=== PATIENT | male | born 1990 | race Caucasian/White ===

== ENCOUNTER 2019-12-08 06:39 | Emergency (ER) | payer OTHER, SELFPAY ==
[2019-12-08 06:48] VITALS: BP 140/92; PULSE 97; RESP 18; TEMP 36.7; O2SAT 98; BMI 38.7
--- NOTE | 2019-12-08 07:37 | DI.RAD.S_ITS ---
PROCEDURE: XR CHEST 2V INDICATIONS: sob, cough and chest pain TECHNIQUE: 2 views of the chest were acquired. COMPARISON: [facility], , CHEST 2 VIEW, 06/12/2017, 12:23. FINDINGS: Surgical changes and devices: None. Lungs and pleura: Lungs are clear. No pleural effusions or pneumothorax. Mediastinum: Mediastinal contours are normal. Heart size is normal. Bones and chest wall: No suspicious bony abnormalities. Soft tissues appear unremarkable. IMPRESSION: No acute disease Dictated by: Hunter Pierre M.D. on 12/08/2019 at 8:32 Approved by: Hunter Pierre M.D. on 12/08/2019 at 8:34
--- NOTE | 2019-12-08 07:37 | ED.URI ---
HPI - URI/Sore Throat General Chief Complaint: Upper Respiratory Symptoms Stated Complaint: difficulty breathing almost Time Seen by Provider: 12/08/19 06:41 Source: patient Mode of arrival: Ambulatory Limitations: no limitations History of Present Illness HPI Narrative: The patient is a 29-year-old male who states that he has felt like crap for the last 2-3 days prior to admission. He woke up this morning with difficulty in breathing short of breath and a cough with chest pain. He has chest pain only when coughing. He describes the pain and discomfort as a dull achy discomfort that is worse with coughing. 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 He denies any pain radiating into his neck jaw shoulder or arms. He denies any back pain. He states that he had asthma as a youth and has no hypertension diabetes mellitus or heart murmur. He smokes cigarettes and drinks alcohol. He has intermittently felt like he has had a fever over the last couple of days associated with chills but no sweats. He has had no significant headache. He has had a sore throat with sinus congestion and nasal drainage. His cough is productive of a clear sputum associated with a dull achy pain chest pain and shortness of breath. He has had no palpitations or dizziness or passing out. He denies any significant abdominal pain but has had intermittent nausea and diarrhea without vomiting. He has had no urinary symptoms. Related Data Home Medications Medication Instructions Recorded Confirmed acetaminophen [Tylenol Extra 500 mg PO Q4HP PRN #0 06/12/17 Strength] Previous Rx's Medication Instructions Recorded albuterol sulfate 2 inhalation INHALATION Q4-6H PRN 12/08/19 #1 each azithromycin [Zithromax] 250 mg PO DAILY 4 Days tab 12/08/19 benzonatate [Tessalon Perles] 100 mg PO TID PRN #20 cap 12/08/19 prednisone 40 mg PO DAILY #10 tab 12/08/19 Review of Systems Review of Systems ROS Unobtainable: All systems reviewed & are unremarkable except as noted in HPI and below Patient History Social History Smoking Status: Current every day smoker Smoking Status: Current every day smoker alcohol intake frequency: 0-2 drinks per day Substance Use Type: marijuana Exam Narrative Exam Narrative: PHYSICAL EXAM: CONSTITUTIONAL: Awake, Alert, Oriented, Coherent, Cooperative in NAD. Does not appear toxic or ill. HEAD: AT/NC EENT: PERRL, FROM of eyes, no discharge, no nystagmus No epistaxis or nasal drainage Oral mucosa is moist and pink, posterior pharynx is without erythema or exudate. NECK: Supple, no obvious JVD, Trachea is midline without stridor, no palpable LN or masses. SPINE: No gross deformity, no palpable tenderness of the cervical, thoracic, lumbar or sacral spine. No CVA tenderness. THORAX: No deformity, retractions, chest wall tenderness, subcutaneous air or crepitice. LUNGS: Symmetrical breath sounds with few expiratory squeaks. HEART: Normal heart tones, regular rhythm and rate without murmur. ABDOMEN: Soft, non-tender, normal bowel sounds without guarding, rebound, rigidity or palpable mass . LYMPHATIC: no palpable lymph nodes EXTREMITIES: No edema, cyanosis, deformity or tenderness. NEURO: Awake, alert, oriented, conversive, cranial nerves II-XII are symmetrical and normal, moves all 4 extremities and is ambulatory Initial Vital Signs Initial Vital Signs: Vital Signs Temperature 98.1 F 12/08/19 06:48 Pulse Rate 97 H 12/08/19 06:48 Respiratory Rate 18 12/08/19 06:48 Blood Pressure 140/92 H 12/08/19 06:48 Pulse Oximetry 98 12/08/19 06:48 Course Course Course Narrative: 0824: The patient's chest x-ray by my review is negative for any infiltrate. I did not appreciate any cardiopulmonary pathology. His influenza a and B are both negative. The patient appears to have an acute bronchitis. He will be treated with Zithromax, prednisone, and albuterol inhaler and Tessalon Perles. Orders Ordered: Discontinued Medications Albuterol/Ipratropium (Duoneb) 3 ml INH NOW ONE Stop: 12/08/19 07:38 Last Admin: 12/08/19 08:01 Dose: 3 ml Documented by: ANURAG Azithromycin (Zithromax) 500 mg PO NOW ONE Stop: 12/08/19 08:26 Last Admin: 12/08/19 08:33 Dose: 500 mg Documented by: VINCENZO Prednisone (Deltasone) 60 mg PO NOW ONE Stop: 12/08/19 08:26 Last Admin: 12/08/19 08:33 Dose: 60 mg Documented by: VINCENZO Vital Signs Vital signs: Vital Signs - 8 hr 12/08/19 06:48 Temperature 98.1 F Pulse Rate 97 H Respiratory Rate 18 Blood Pressure 140/92 H Pulse Oximetry 98 MDM - URI/Sore Throat Lab Data Result diagrams: 12/08/19 08:07 12/08/19 08:07 Labs: Lab Results 12/08/19 12/08/19 12/08/19 Range/Units 07:24 08:07 08:07 WBC 11.1 H (4.5-11.0) X10^3/uL RBC 4.91 (4.5-5.9) X10^6/uL Hgb 15.2 (13.5-17.5) g/dL Hct 43.7 (41-53) % MCV 89.0 (80-100) fL MCH 31.1 (26-34) PG MCHC 34.9 (30-36) % RDW 12.5 (11.6-14.8) % Plt Count 259 (150-400) X10^3/uL Neut % (Auto) 64.1 (50-75) % Lymph % (Auto) 26.2 (25-40) % Treasure % (Auto) 7.3 (3-14) % Eos % (Auto) 1.3 L (2-4) % Baso % (Auto) 1.1 (0-2) % Neut # (Auto) 7100 H (8293-8842) /uL Lymph # (Auto) 2900 (8757-3185) /uL Treasure # (Auto) 800 (0-900) /uL Eos # (Auto) 100 (0-450) /uL Baso # (Auto) 100 (0-100) /uL Sodium 142 (137-145) mmol/L Potassium 4.1 (3.4-5.1) mmol/L Chloride 107 (98-107) mmol/L Carbon Dioxide 29 (22-32) mmol/L BUN 15 (9-20) mg/dL Creatinine 0.80 (0.66-1.25) mg/dL Estimated GFR > 60.0 (>60) mL/min BUN/Creatinine Ratio 18.8 (6-22) Glucose 108 H (70-100) mg/dL Calcium 8.9 (8.4-10.2) mg/dL Influenza A (RT-PCR) Flu a negative (NEGATIVE) Influenza B (RT-PCR) Flu b negative (NEGATIVE) Discharge Plan Departure Patient Disposition: Home Clinical Impression: Bronchitis Upper respiratory infection Qualifiers: URI type: unspecified URI Qualified Code(s): J06.9 - Acute upper respiratory infection, unspecified Discharge Date/Time: 12/08/19 09:14 Instructions: DI for Acute Bronchitis, DI for Viral Upper Respiratory Infection -- Adult Activity Restrictions/Additional Instructions: You need to rest, drink plenty of fluids at least 2-3 L per day. And for any fever muscle aches headache joint pain take either Tylenol 500 mg q.4-6 hours or ibuprofen 600 mg (3, 200 mg tablets) every 6 hours. Take the prednisone as prescribed use the albuterol inhaler for shortness of breath cough and wheezing, Tessalon Perles for the cough and Zithromax until gone. Follow-up with your primary care physician in 2-3 days if not better. Prescriptions: New prednisone 20 mg tablet 40 mg PO DAILY Qty: 10 RF: 0 benzonatate [Tessalon Perles] 100 mg capsule 100 mg PO TID PRN (Reason: cough) Qty: 20 RF: 0 albuterol sulfate 90 mcg/actuation aero powdr breath act w/sensor 2 inhalation INHALATION Q4-6H PRN (Reason: shortness of breath or wheezing) Qty: 1 RF: 1 azithromycin [Zithromax] 250 mg tablet 250 mg PO DAILY 4 Days RF: 0 No Action acetaminophen [Tylenol Extra Strength] 500 MG tablet 500 mg PO Q4HP PRNQty: 0 RF: 0 Stand Alone Forms: Work Release Note
[2019-12-08] MEDS: ALBUTEROL/IPRATROPIUM 3 ML AMPUL INH (08:01)
[2019-12-08 08:02] LABS: Influenza A - CEPHEID Flu A NEGATIVE (NEGATIVE); Influenza B - CEPHEID Flu B NEGATIVE (NEGATIVE)
[2019-12-08 08:19] LABS: Add Manual Diff / Slide Review NO; Basophils Absolute Auto 100 /uL (0-100); Basophils Percent Auto 1.1 % (0-2); Eosinophils Absolute Auto 100 /uL (0-450); Eosinophils Percent Auto 1.3 % (2-4); Hematocrit 43.7 % (41-53); Hemoglobin 15.2 g/dL (13.5-17.5); Lymphocytes Absolute Auto 2900 /uL (1100-4500); Lymphocytes Percent Auto 26.2 % (25-40); Mean Corpuscular HGB Conc 34.9 % (30-36); Mean Corpuscular Hemoglobin 31.1 PG (26-34); Monocytes Absolute Auto 800 /uL (0-900); Monocytes Percent Auto 7.3 % (3-14); Neutrophils Absolute Auto 7100 /uL (1500-7000); Neutrophils Percent Auto 64.1 % (50-75); Platelet Count 259 X10^3/uL (150-400); Red Blood Cell Count 4.91 X10^6/uL (4.5-5.9); Red Cell Distribution Width 12.5 % (11.6-14.8); White Blood Cell Count 11.1 X10^3/uL (4.5-11.0)
[2019-12-08 08:29] LABS: BUN Creatinine Ratio 18.8 (6-22); Blood Urea Nitrogen 15 mg/dL (9-20); Calcium 8.9 mg/dL (8.4-10.2); Carbon Dioxide 29 mmol/L (22-32); Chloride 107 mmol/L (98-107); Estimated Glomerular Filt Rate > 60.0 mL/min (>60); Glucose 108 mg/dL (70-100); HEMOLYSIS 16 (0-50); Potassium 4.1 mmol/L (3.4-5.1); Sodium 142 mmol/L (137-145)
[2019-12-08] MEDS: predniSONE 20 MG TABLET 60 MG PO (08:33)
[2019-12-08] MEDS: AZITHROMYCIN 250 MG TABLET 500 MG PO (08:33)
[2019-12-08 08:45] VITALS: PULSE 94; RESP 16; O2SAT 98
[2019-12-08 09:13] VITALS: BP 125/82; PULSE 61; O2SAT 96
== END 2019-12-08 09:14 | disposition home or self-care (01) ==
PROVIDERS: Emergency Medicine; Emergency Provider Emergency Medicine
DX: J40 Bronchitis, not specified as acute or chronic (principal); J06.9 Acute upper respiratory infection, unspecified; R07.9 Chest pain, unspecified
CPT/HCPCS: 36415; 71046; 80048; 85025; 87502; 94640; 99283; 99284

== ENCOUNTER 2020-09-12 12:22 | Emergency (ER) | payer OTHER, SELFPAY ==
[2020-09-12 12:32] VITALS: BP 152/92; PULSE 80; RESP 22; TEMP 36.7; O2SAT 96
[2020-09-12] MEDS: ALBUTEROL HFA 200 PUFF/18 GM INH (COVID POS/VENT PTS) INH (13:24)
[2020-09-12 13:25] VITALS: PULSE 66; RESP 18; O2SAT 97
[2020-09-12 13:40] VITALS: PULSE 64; RESP 16; O2SAT 98
--- NOTE | 2020-09-12 14:04 | ED.SOB ---
HPI - SOB/Dyspnea <SAV CristobalP - Last Filed: 09/12/20 14:11> General Chief Complaint: Shortness of Breath/Dyspnea Stated Complaint: Asthma Attacks and Panic Attacks Time Seen by Provider: 09/12/20 13:38 Source: patient Mode of arrival: Ambulatory Limitations: no limitations History of Present Illness HPI Narrative: This is a 30-year-old male, smoker, who has medical history significant for pleurisy and asthma presents to ED with with chief complain of coughing and short of breath from seasonal allergies which caused anxiety and panic attacks. Patient was not able to breathe well and became anxious with hyperventilation and had tingling and numbness to his hands and became sweaty which resolved at this time. Patient did not have albuterol inhaler and states only reason I am here is to get on inhaler.. Patient reports no chest pain, dyspnea, diaphoresis, nausea or vomiting at this time. Patient denies fever, chills, productive cough, or malaise. He was evaluated by respiratory therapy and given albuterol inhaler with a spacer teaching. Patient does not have primary care physician. Related Data Home Medications Medication Instructions Recorded Confirmed No Known Home Medications 09/12/20 09/12/20 Allergies Allergy/AdvReac Type Severity Reaction Status Date / Time No Known Drug Allergies Allergy Verified 09/12/20 12:35 Review of Systems <SAV CristobalP - Last Filed: 09/12/20 14:11> Review of Systems Narrative: General: Denies fever, chills, fatigue, malaise, sweats. HEENT: Denies sinus pain, ear pain, sore throat, difficulty swallowing, dizziness. Respiratory: See HPI Cardiovascular: Denies chest pain, palpitations, orthopnea, edema. Gastrointestinal: Denies nausea, vomiting, abdominal pain, diarrhea, constipation, melena. : Denies dysuria, frequency, incontinence, hematuria, urinary retention. Musculoskeletal: Denies weakness, joint pain or bony pain. Skin: Denies rash, skin lesions, or other. Neurologic: Denies weakness, headache, numbness, change in speech, confusion, seizures, incoordination. Psychiatric: No concerning psychosocial issues. 12-point review of systems is negative except for those stated above. Patient History <ABRAN Cristobal - Last Filed: 09/12/20 14:11> Social History Smoking Status: Current every day smoker Smoking Status: Current every day smoker alcohol intake frequency: 0-2 drinks per day Substance Use Type: marijuana Exam <ABRAN Cristobal - Last Filed: 09/12/20 14:11> Narrative Exam Narrative: General appearance: well developed, well nourished, in no acute distress. Head: normocephalic, atraumatic, no scalp lesions, non-tender. ENT: Bilateral auditory canals and tympanic membranes clear. Hearing grossly intact. Nose without bleeding, purulent discharge, septal hematoma or deviation. Turbinate without erythema or swelling. Facial sinuses nontender to palpate. Mucous membrane moist, no mucosal lesion. Throat without erythema, tonsillar hypertrophy or exudate. Uvula in midline, airway patent. Neck/Thyroid: neck supple, full range of motion, no visible masses or meningeal signs. No JVD, non-tender without lymphadenopathy. Skin: no suspicious rashes, lesions over visible areas. Warm and dry and appropriate color for ethnicity. Heart: no clubbing, no cyanosis, no edema. S1 and S2 normal. RRR w/o murmurs, clicks, or bruits. Lungs: Breathing even and unlabored. No stridor. No accessory muscles used. Able to speak in full sentences. Chest: normal shape and expansion. Abdomen: non-obese, non-distended. Neurologic: alert and oriented. Cognitive exam, [employer] and PNS grossly intact on informal exam. Psych: good eye contact, normal affect. Initial Vital Signs Initial Vital Signs: Vital Signs Temperature 98.1 F 09/12/20 12:32 Pulse Rate 80 09/12/20 12:32 Respiratory Rate 22 09/12/20 12:32 Blood Pressure 152/92 H 09/12/20 12:32 Pulse Oximetry 96 09/12/20 12:32 <Leisa Emerson DO - Last Filed: 09/12/20 19:08> Initial Vital Signs Initial Vital Signs: Vital Signs Temperature 98.1 F 09/12/20 12:32 Pulse Rate 80 09/12/20 12:32 Respiratory Rate 22 09/12/20 12:32 Blood Pressure 152/92 H 09/12/20 12:32 Pulse Oximetry 96 09/12/20 12:32 Scores <[facility] - Last Filed: 09/12/20 14:11> GCS [place] coma scale eye opening: Spontaneous Samantha coma scale verbal response: Orientated [place] coma scale motor response: Obey commands [place] coma scale total score: 15 Course <[facility] SAV TongP - Last Filed: 09/12/20 14:11> Orders Ordered: Discontinued Medications Albuterol (Ventolin Hfa (Vent/Covid R/O)) 2 puff INH NOW ONE Stop: 09/12/20 13:23 Last Admin: 09/12/20 13:24 Dose: 2 puff Documented by: HARESH Vital Signs Vital signs: Vital Signs - 8 hr 09/12/20 12:32 09/12/20 13:25 09/12/20 13:40 Temperature 98.1 F Pulse Rate 80 66 64 Respiratory Rate 22 18 16 Blood Pressure 152/92 H Pulse Oximetry 96 97 98 <Leisa Emerson DO - Last Filed: 09/12/20 19:08> Orders Ordered: Discontinued Medications Albuterol (Ventolin Hfa (Vent/Covid R/O)) 2 puff INH NOW ONE Stop: 09/12/20 13:23 Last Admin: 09/12/20 13:24 Dose: 2 puff Documented by: HARESH Vital Signs Vital signs: Vital Signs - 8 hr 09/12/20 12:32 09/12/20 13:25 09/12/20 13:40 Temperature 98.1 F Pulse Rate 80 66 64 Respiratory Rate 22 18 16 Blood Pressure 152/92 H Pulse Oximetry 96 97 98 [facility] - SOB/Dyspnea <[facility] Alycia BUSINESS DATABASE ANALYST - Last Filed: 09/12/20 14:11> Differential Diagnosis Differential diagnosis: Likely community acquired pneumonia, asthma with exacerbation and other (Sees allergies, bronchitis) Medical Records Attestation: I reviewed the patient's medical records. [facility] Narrative Medical decision making narrative: This is a 30-year-old male who has history of seasonal allergies and cough, postnasal drips, nasal congestion presents to ED with short of breath that caused panic attacks. Patient describes his symptoms as panic attacks. Patient reports currently his symptoms free and feeling much improved. Lung sounds are clear to auscultate in all lobes. Patient provided with albuterol inhaler as requested and spacer teaching provided by RT and for home use. Patient provided with [facility] contact number to arrange primary care physician and return precautions were discussed including cardiac symptoms. Patient and spouse verbalized understanding in agreement with treatment plan. Smoking cessation discussion done. Discharge Plan Departure Patient Disposition: Home Clinical Impression: Seasonal allergic reaction, Cough Discharge Date/Time: 09/12/20 14:07 Instructions: DI for Shortness of Breath Activity Restrictions/Additional Instructions: You have been diagnosed with [cough, short of breath, likely from seasonal allergies which caused panic attacks]. What to do: *Take your medications as directed. Please use albuterol inhaler as needed for short of breath, cough, chest tightness. Used 2 puffs every 4 hours as needed through spacer. Also consider taking allergy pills or Flonase as needed which she can purchase [id number]. *Follow up with your primary care provider in 2-3 days, call for an appointment. Let them know you were seen in the ED and that we asked you to be seen in follow up. *Return to ED if you have any new, worsening, or concerning symptoms, such as [fever, chest pain, worsening breathing, unable to tolerate fluids, or any acute concerns]. Prescriptions: No Action No Known Home Medications RF: 0 Referrals: [facility] [Outside]
== END 2020-09-12 14:07 | disposition home or self-care (01) ==
PROVIDERS: Emergency Provider Nurse Practitioner Family
DX: J30.2 Other seasonal allergic rhinitis (principal); R05 Cough
CPT/HCPCS: 94640; 99282; 99283

== ENCOUNTER 2020-09-16 10:28 | Emergency (ER) | payer OTHER, SELFPAY ==
[2020-09-16] VITALS (8 sets, daily range): BP systolic 125–171; BP diastolic 74–100; PULSE 63–97; RESP 18; TEMP 36.4; O2SAT 95–98
[2020-09-16 11:06] LABS: Add Manual Diff / Slide Review NO; Basophils Absolute Auto 0 /uL (0-100); Basophils Percent Auto 0.3 % (0-2); Eosinophils Absolute Auto 0 /uL (0-450); Eosinophils Percent Auto 0.1 % (2-4); Hematocrit 46.2 % (41-53); Hemoglobin 16.2 g/dL (13.5-17.5); Lymphocytes Absolute Auto 2100 /uL (1100-4500); Lymphocytes Percent Auto 14.4 % (25-40); Mean Corpuscular Hemoglobin 30.9 PG (26-34); Mean Corpuscular Volume 88.3 fL (80-100); Monocytes Absolute Auto 700 /uL (0-900); Monocytes Percent Auto 4.9 % (3-14); Neutrophils Absolute Auto 11900 /uL (1500-7000); Neutrophils Percent Auto 80.3 % (50-75); Platelet Count 285 X10^3/uL (150-400); Red Blood Cell Count 5.23 X10^6/uL (4.5-5.9); Red Cell Distribution Width 12.4 % (11.6-14.8); White Blood Cell Count 14.8 X10^3/uL (4.5-11.0)
[2020-09-16 11:13] LABS: Prothrombin Time 12.1 SECONDS (10.1-12.7)
[2020-09-16 11:16] LABS: PTT Partial Thromboplastin Tim 34 SECONDS (26.4-36.2)
[2020-09-16 11:20] LABS: Alanine Aminotransferase 62 IU/L (<50); Albumin 4.7 g/dL (3.5-5.0); Albumin Globulin Ratio 1.3 (1.0-2.8); Alkaline Phosphatase 75 U/L (38-126); Aspartate Aminotransferase 41 IU/L (17-59); Bilirubin Total 0.7 mg/dL (0.2-1.3); Blood Urea Nitrogen 10 mg/dL (9-20); Calcium 9.5 mg/dL (8.4-10.2); Carbon Dioxide 23 mmol/L (22-32); Chloride 107 mmol/L (98-107); Estimated Glomerular Filt Rate > 60.0 mL/min (>60); Globulin 3.5 g/dL (1.7-4.1); Glucose 110 mg/dL (70-100); HEMOLYSIS < 15 (0-50); Lipase 45 U/L (23-300); Potassium 3.8 mmol/L (3.4-5.1); Sodium 139 mmol/L (137-145); Total Protein 8.2 g/dL (6.3-8.2)
--- NOTE | 2020-09-16 13:52 | DI.RAD.S_ITS ---
PROCEDURE: XR ACUTE ABDOMEN SERIES INDICATIONS: upper abdominal pain, nausea, no BM last 4 days TECHNIQUE: One view chest and 3 views of the abdomen were acquired. COMPARISON: None. FINDINGS: Surgical changes and devices: None. Chest: Lungs are clear. Heart size is normal. No pleural effusions. No pneumoperitoneum. Abdomen: Bowel gas pattern is normal. Small amount of stool is seen in the colon. No suspicious calcifications. Visualized solid organ contours appear normal. Bones: No suspicious bony lesions. IMPRESSION: Nonobstructive bowel gas pattern. No pneumoperitoneum. Dictated by: Jeffrey Villeda M.D. on 09/16/2020 at 14:32 Approved by: Jeffrey Villeda M.D. on 09/16/2020 at 14:33
[2020-09-16 14:34] LABS: Lactate (Lactic Acid) 1.4 mmol/L (0.7-2.1)
[2020-09-16 14:39] LABS: Procalcitonin < 0.05 ng/mL (<0.5)
[2020-09-16 14:58] LABS: Bacteria Urine None Seen; RBC Urine None Seen (0-5/HPF); WBC Urine None Seen (0-5/HPF)
[2020-09-16 15:04] LABS: Culture Indicated Urine Cult Not Indicated; Mucus Urine 1+ (Negative)
--- NOTE | 2020-09-16 20:54 | ED_ITS ---
HPI - Abdominal Pain <ABRAN Cristobal - Last Filed: 09/16/20 21:29> General Chief Complaint: Abdominal Pain Stated Complaint: Pain lower right side, hasn't really voided Time Seen by Provider: 09/16/20 13:30 Source: patient Mode of arrival: Ambulatory Limitations: no limitations History of Present Illness HPI narrative: This is a 30-year-old male, smoker, who has past medical history significant for anxiety, panic attacks, asthma, GERD presents to ED with chief complain of upper abdominal discomfort and nausea. Patient reports this is his 4th visits to ED this week with similar discomfort and denies increased in severity or changes in character. Patient was evaluated in [facility] Emergency room twice and [facility] Emergency room once with extensive tests including blood test, ultrasound test, and CT test of abdomen and pelvis. Patient was diagnosed with gastritis and discharged to home with Carafate and ranitidine. Patient has follow-up appointment with [facility] General surgeon in a week and getting an endoscope. Patient denies fever, ch ills, vomiting. Patient reports has been having difficulty with bowel movement since 4 days ago. He denies blood in his stool or emesis. Patient reports greenish mucousy stool today and had taken MiraLax before coming into ED. Patient reports decreased solid food intake but has been hydrating well with frequent urination. patient reports occasionally pain is severe with pressure- like discomfort in abdomen to low back. He reports skipping meals frequently in the past. Patient denies history of diabetes, colitis, or Crohn's. Patient used to smoke pot regularly to cope with anxiety and dealing with people but has not been using much this week. Patient called nurse's line and he is only here because he was told to going to ED next 4 hours. Related Data Home Medications Medication Instructions Recorded Confirmed No Known Home Medications 09/12/20 09/12/20 Allergies Allergy/AdvReac Type Severity Reaction Status Date / Time No Known Drug Allergies Allergy Verified 09/16/20 10:37 Review of Systems <ABRAN Cristobal - Last Filed: 09/16/20 21:29> Review of Systems Narrative: General: Denies fever, chills, fatigue, malaise, sweats. HEENT: Denies sinus pain, ear pain, sore throat, difficulty swallowing, dizziness. Respiratory: Denies dyspnea, cough, wheezing, hemoptysis, sputum. Cardiovascular: Denies chest pain, palpitations, orthopnea, edema. Gastrointestinal: See HPI : Denies dysuria, frequency, incontinence, hematuria, urinary retention. Musculoskeletal: Denies weakness, joint pain or bony pain. Skin: Denies rash, skin lesions, or other. Neurologic: Denies weakness, headache, numbness, change in speech, confusion, seizures, incoordination. Psychiatric: No concerning psychosocial issues. 12-point review of systems is negative except for those stated above. Patient History <ABRAN Cristobal - Last Filed: 09/16/20 21:29> Medical History Gastritis (Acute) Social History Smoking Status: Current every day smoker Smoking Status: Current every day smoker alcohol intake frequency: 0-2 drinks per day Substance Use Type: marijuana Exam <ABRAN Cristobal - Last Filed: 09/16/20 21:29> Narrative Exam Narrative: GEN: Alert, oriented x 3, well appearing and nourished, and in no acute distress. Head: Normal cephalic, atraumatic. No scalp or temporal tenderness, palpable mass or rash. EYES: Pupils are equal, round, and reactive to light and accommodation. Extraocular muscles are intact bilaterally. There is no subconjunctival hemorrhage, exudate and sclera non-icteric. ENT: Hearing grossly intact. Nose without bleeding, purulent discharge or deviation. Mucous membrane moist, no mucosal lesion. Throat without erythema, tonsillar hypertrophy or exudate. Uvula in midline, airway patent. Neck: Trachea in midline. No JVD, non-tender without lymphadenopathy. No masses or thyroid megaly. Supple, non-tender and no meningeal signs. CARDIAC: Normal regular rate and rhythm without murmurs, gallops, or rubs. No chest wall tenderness. No peripheral edema, cyanosis or pallor. Capillary refill is less than 2 seconds. RESPIRATORY: Lungs are clear to auscultate bilaterally. No cough, wheezes, rales, or rhonchi. No stridor, respiratory distress, increase work of breathing, or accessary muscle used. ABD: Abdomen soft and non-distended. Epigastric mild tenderness to palpate and bilateral upper abdomen minus to palpate. No guarding or rebound tenderness to palpate. Bowel sounds are normal in all 4 quadrants. There is no palpable masses or organomegaly. EXT: Full painless ROM of all extremities with no loss of sensation, strength, effusion or edema. SKIN: Warm, dry, normal color for patient. No erythema, lesions or rash over visible areas. BACK: Nontender without deformity or crepitance. No flank tenderness. NEUROLOGICAL: Alert and oriented to place, time and person. Sensation and motor function intact bilaterally. No facial droops, dysphasia. PSYCHIATRIC: Good judgement and reason, without hallucinations, abnormal affect or abnormal behaviors during the examination. Patient is not suicidal. Initial Vital Signs Initial Vital Signs: Vital Signs Temperature 97.6 F 09/16/20 10:33 Pulse Rate 88 09/16/20 10:33 Respiratory Rate 18 09/16/20 10:33 Blood Pressure 171/100 H 09/16/20 10:33 Pulse Oximetry 96 09/16/20 10:33 <Leisa Emerson DO - Last Filed: 09/21/20 07:23> Initial Vital Signs Initial Vital Signs: Vital Signs Temperature 97.6 F 09/16/20 10:33 Pulse Rate 88 09/16/20 10:33 Respiratory Rate 18 09/16/20 10:33 Blood Pressure 171/100 H 09/16/20 10:33 Pulse Oximetry 96 09/16/20 10:33 Scores <SAV CristobalP - Last Filed: 09/16/20 21:29> GCS Samantha coma scale eye opening: Spontaneous Samantha coma scale verbal response: Orientated Samantha coma scale motor response: Obey commands [place] coma scale total score: 15 qSOFA Altered Mental Status (GCS <15): No Respiratory rate greater than/equal to 22: No Systolic blood pressure less than or equal to 100: No qSOFA Total: 0 0-1 Not High Risk 1-3 High risk Course <ABRAN Cristobal - Last Filed: 09/16/20 21:29> Orders Ordered: Discontinued Medications Sodium Chloride (Normal Saline 0.9%) 1,000 mls @ 150 mls/hr IV CONT CHRIS Ondansetron HCl (Zofran) 4 mg IV NOW ONE Stop: 09/16/20 13:46 Vital Signs Vital signs: Vital Signs - 8 hr 09/16/20 14:16 09/16/20 14:17 09/16/20 14:30 Pulse Rate 74 69 63 Respiratory Rate Blood Pressure 131/74 125/75 Pulse Oximetry 98 97 95 09/16/20 14:39 09/16/20 15:00 09/16/20 15:01 Pulse Rate 78 97 H 66 Respiratory Rate Blood Pressure 134/79 Pulse Oximetry 96 98 98 09/16/20 15:20 Pulse Rate 72 Respiratory Rate 18 Blood Pressure 140/91 H Pulse Oximetry 97 <Leisa Emerson DO - Last Filed: 09/21/20 07:23> Orders Ordered: Discontinued Medications Sodium Chloride (Normal Saline 0.9%) 1,000 mls @ 150 mls/hr IV CONT CHRIS Ondansetron HCl (Zofran) 4 mg IV NOW ONE Stop: 09/16/20 13:46 Vital Signs Vital signs: Vital Signs - 8 hr 09/16/20 14:16 09/16/20 14:17 09/16/20 14:30 Pulse Rate 74 69 63 Respiratory Rate Blood Pressure 131/74 125/75 Pulse Oximetry 98 97 95 09/16/20 14:39 09/16/20 15:00 09/16/20 15:01 Pulse Rate 78 97 H 66 Respiratory Rate Blood Pressure 134/79 Pulse Oximetry 96 98 98 09/16/20 15:20 Pulse Rate 72 Respiratory Rate 18 Blood Pressure 140/91 H Pulse Oximetry 97 MDM - Abdominal Pain <ABRAN Cristobal - Last Filed: 09/16/20 21:29> Differential Diagnosis Differential diagnosis: Likely abdominal pain, acute appendicitis, calculus of kidney, constipation, pancreatitis and other (Gastritis, ulcer, colitis) Medical Records Attestation: I reviewed the patient's medical records. Lab Data Attestation: I reviewed the patient's lab results. Result diagrams: 09/16/20 10:35 09/16/20 10:35 Labs: Lab Results 09/16/20 09/16/20 09/16/20 Range/Units 10:35 10:35 10:35 WBC 14.8 H (4.5-11.0) X10^3/uL RBC 5.23 (4.5-5.9) X10^6/uL Hgb 16.2 (13.5-17.5) g/dL Hct 46.2 (41-53) % MCV 88.3 (80-100) fL MCH 30.9 (26-34) PG MCHC 35.0 (30-36) % RDW 12.4 (11.6-14.8) % Plt Count 285 (150-400) X10^3/uL Neut % (Auto) 80.3 H (50-75) % Lymph % (Auto) 14.4 L (25-40) % Baldwin % (Auto) 4.9 (3-14) % Eos % (Auto) 0.1 L (2-4) % Baso % (Auto) 0.3 (0-2) % Neut # (Auto) 88409 H (1916-7752) /uL Lymph # (Auto) 2100 (2078-5664) /uL Baldwin # (Auto) 700 (0-900) /uL Eos # (Auto) 0 (0-450) /uL Baso # (Auto) 0 (0-100) /uL PT 12.1 (10.1-12.7) SECONDS INR 1.0 (0.9-1.3) APTT 34 (26.4-36.2) SECONDS Sodium 139 (137-145) mmol/L Potassium 3.8 (3.4-5.1) mmol/L Chloride 107 (98-107) mmol/L Carbon Dioxide 23 (22-32) mmol/L BUN 10 (9-20) mg/dL Creatinine 0.83 (0.66-1.25) mg/dL Estimated GFR > 60.0 (>60) mL/min BUN/Creatinine Ratio 12.0 (6-22) Glucose 110 H (70-100) mg/dL Lactate (0.7-2.1) mmol/L Calcium 9.5 (8.4-10.2) mg/dL Total Bilirubin 0.7 (0.2-1.3) mg/dL AST 41 (17-59) IU/L ALT 62 H (<50) IU/L Alkaline Phosphatase 75 (38-126) U/L Total Protein 8.2 (6.3-8.2) g/dL Albumin 4.7 (3.5-5.0) g/dL Globulin 3.5 (1.7-4.1) g/dL Albumin/Globulin Ratio 1.3 (1.0-2.8) Lipase 45 (23-300) U/L Procalcitonin (<0.5) ng/mL Urine RBC (0-5/HPF) Urine WBC (0-5/HPF) Urine Bacteria (None) Urine Mucus (Negative) Ur Culture Indicated? 09/16/20 09/16/20 09/16/20 Range/Units 10:35 10:35 14:35 WBC (4.5-11.0) X10^3/uL RBC (4.5-5.9) X10^6/uL Hgb (13.5-17.5) g/dL Hct (41-53) % MCV (80-100) fL MCH (26-34) PG MCHC (30-36) % RDW (11.6-14.8) % Plt Count (150-400) X10^3/uL Neut % (Auto) (50-75) % Lymph % (Auto) (25-40) % Baldwin % (Auto) (3-14) % Eos % (Auto) (2-4) % Baso % (Auto) (0-2) % Neut # (Auto) (2309-9154) /uL Lymph # (Auto) (1248-5086) /uL Baldwin # (Auto) (0-900) /uL Eos # (Auto) (0-450) /uL Baso # (Auto) (0-100) /uL PT (10.1-12.7) SECONDS INR (0.9-1.3) APTT (26.4-36.2) SECONDS Sodium (137-145) mmol/L Potassium (3.4-5.1) mmol/L Chloride (98-107) mmol/L Carbon Dioxide (22-32) mmol/L BUN (9-20) mg/dL Creatinine (0.66-1.25) mg/dL Estimated GFR (>60) mL/min BUN/Creatinine Ratio (6-22) Glucose (70-100) mg/dL Lactate 1.4 (0.7-2.1) mmol/L Calcium (8.4-10.2) mg/dL Total Bilirubin (0.2-1.3) mg/dL AST (17-59) IU/L ALT (<50) IU/L Alkaline Phosphatase (38-126) U/L Total Protein (6.3-8.2) g/dL Albumin (3.5-5.0) g/dL Globulin (1.7-4.1) g/dL Albumin/Globulin Ratio (1.0-2.8) Lipase (23-300) U/L Procalcitonin < 0.05 (<0.5) ng/mL Urine RBC None seen (0-5/HPF) Urine WBC None seen (0-5/HPF) Urine Bacteria None seen (None) Urine Mucus 1+ H (Negative) Ur Culture Indicated? Cult not indicated Point of care testing: Urine Dip Bedside Urine Glucose Negative Bedside Urine Bilirubin - Negative Bedside Urine Ketone +++ 80 Urine Specific [place] 1.025 Bedside Urine Occult Blood +/- Bedside Urine pH 6 Bedside Urine Urobilinogen - Negative Bedside Urine Nitrite - Negative Bedside Urine Leukocytes - Negative Esterase MDM Narrative Medical decision making narrative: This is a 30-year-old male who presents to ED with upper abdominal/epigastric region discomfort and nausea. This is his 4th visit to ED emergency room including twice at [facility] and once at [facility]. Patient received comprehensive exam and evaluation with labs and imaging tests including ultrasound and CT without acute findings. He was diagnosed with gastritis and he is currently taking Carafate, Protonix and Pepcid for his symptoms. Patient has slightly elevated leukocytosis of 14.8. Stable H&H of 16.2/46.2. Normal coag test. Mildly elevated ALT of 62 otherwise unremarkable chemistry test. Lactate (1.4) and procalcitonin (<0.05) normal. Patient declined IV insertion or IV medication of Zofran for nausea. No indications of dehydration. No indications for UTI but shows some ketones and +/-occult blood in his urine. Acute abdominal series does not shows obstructions or pneumo peritoneum. Small amount of stool seen in colon and solid organ appears to be normal in contours. Previous lab test shows WBC from 09/13-09/15 range from 13.7 to as high as 16.0 (09/13) with unremarkable chemistry test except just very mildly elevated ALT and glucose. US on 09/14/2020 shows diffusely increased hepatic echogenicity compatible with hepatic steatosis versus chronic hepatocellular disease with the focal lesions and otherwise normal pancreas and gallbladder. CT on 09/15/2020 indicates no acute disease process, no free fluid or air, no dilated bowel loops and normal appendix. Given patient had extensive tests done last few days with same chief complain, I discussed detail with patient about exposing to CT rays and its benefit and harm. Patient declined further imaging test at this time. Patient advised to continue with current medication treatment with Carafate, Pepcid and or Protonix for next couple of weeks and to follow-up with appointment in about a week with surgery at [facility]. Strict return precautions were discussed with patient and he verbalized understanding in agreement with the treatment plan. Patient advised to use Zofran as needed that he has already to hydrate himself. Patient informed can continue with MiraLax onto has good bowel movements but decreased stool likely from decreased p.o. intake. <Leisa Emerson, DO - Last Filed: 09/21/20 07:23> Lab Data Labs: Lab Results 09/16/20 09/16/20 09/16/20 Range/Units 10:35 10:35 10:35 WBC 14.8 H (4.5-11.0) X10^3/uL RBC 5.23 (4.5-5.9) X10^6/uL Hgb 16.2 (13.5-17.5) g/dL Hct 46.2 (41-53) % MCV 88.3 (80-100) fL MCH 30.9 (26-34) PG MCHC 35.0 (30-36) % RDW 12.4 (11.6-14.8) % Plt Count 285 (150-400) X10^3/uL Neut % (Auto) 80.3 H (50-75) % Lymph % (Auto) 14.4 L (25-40) % Baldwin % (Auto) 4.9 (3-14) % Eos % (Auto) 0.1 L (2-4) % Baso % (Auto) 0.3 (0-2) % Neut # (Auto) 06677 H (6350-1738) /uL Lymph # (Auto) 2100 (2172-0968) /uL Baldwin # (Auto) 700 (0-900) /uL Eos # (Auto) 0 (0-450) /uL Baso # (Auto) 0 (0-100) /uL PT 12.1 (10.1-12.7) SECONDS INR 1.0 (0.9-1.3) APTT 34 (26.4-36.2) SECONDS Sodium 139 (137-145) mmol/L Potassium 3.8 (3.4-5.1) mmol/L Chloride 107 (98-107) mmol/L Carbon Dioxide 23 (22-32) mmol/L BUN 10 (9-20) mg/dL Creatinine 0.83 (0.66-1.25) mg/dL Estimated GFR > 60.0 (>60) mL/min BUN/Creatinine Ratio 12.0 (6-22) Glucose 110 H (70-100) mg/dL Lactate (0.7-2.1) mmol/L Calcium 9.5 (8.4-10.2) mg/dL Total Bilirubin 0.7 (0.2-1.3) mg/dL AST 41 (17-59) IU/L ALT 62 H (<50) IU/L Alkaline Phosphatase 75 (38-126) U/L Total Protein 8.2 (6.3-8.2) g/dL Albumin 4.7 (3.5-5.0) g/dL Globulin 3.5 (1.7-4.1) g/dL Albumin/Globulin Ratio 1.3 (1.0-2.8) Lipase 45 (23-300) U/L Procalcitonin (<0.5) ng/mL Urine RBC (0-5/HPF) Urine WBC (0-5/HPF) Urine Bacteria (None) Urine Mucus (Negative) Ur Culture Indicated? 09/16/20 09/16/20 09/16/20 Range/Units 10:35 10:35 14:35 WBC (4.5-11.0) X10^3/uL RBC (4.5-5.9) X10^6/uL Hgb (13.5-17.5) g/dL Hct (41-53) % MCV (80-100) fL MCH (26-34) PG MCHC (30-36) % RDW (11.6-14.8) % Plt Count (150-400) X10^3/uL Neut % (Auto) (50-75) % Lymph % (Auto) (25-40) % Baldwin % (Auto) (3-14) % Eos % (Auto) (2-4) % Baso % (Auto) (0-2) % Neut # (Auto) (4130-6535) /uL Lymph # (Auto) (9835-6228) /uL Baldwin # (Auto) (0-900) /uL Eos # (Auto) (0-450) /uL Baso # (Auto) (0-100) /uL PT (10.1-12.7) SECONDS INR (0.9-1.3) APTT (26.4-36.2) SECONDS Sodium (137-145) mmol/L Potassium (3.4-5.1) mmol/L Chloride (98-107) mmol/L Carbon Dioxide (22-32) mmol/L BUN (9-20) mg/dL Creatinine (0.66-1.25) mg/dL Estimated GFR (>60) mL/min BUN/Creatinine Ratio (6-22) Glucose (70-100) mg/dL Lactate 1.4 (0.7-2.1) mmol/L Calcium (8.4-10.2) mg/dL Total Bilirubin (0.2-1.3) mg/dL AST (17-59) IU/L ALT (<50) IU/L Alkaline Phosphatase (38-126) U/L Total Protein (6.3-8.2) g/dL Albumin (3.5-5.0) g/dL Globulin (1.7-4.1) g/dL Albumin/Globulin Ratio (1.0-2.8) Lipase (23-300) U/L Procalcitonin < 0.05 (<0.5) ng/mL Urine RBC None seen (0-5/HPF) Urine WBC None seen (0-5/HPF) Urine Bacteria None seen (None) Urine Mucus 1+ H (Negative) Ur Culture Indicated? Cult not indicated Point of care testing: Urine Dip Bedside Urine Glucose Negative Bedside Urine Bilirubin - Negative Bedside Urine Ketone +++ 80 Urine Specific [place] 1.025 Bedside Urine Occult Blood +/- Bedside Urine pH 6 Bedside Urine Urobilinogen - Negative Bedside Urine Nitrite - Negative Bedside Urine Leukocytes - Negative Esterase Discharge Plan Departure Patient Disposition: Home Clinical Impression: Abdominal pain, epigastric Discharge Date/Time: 09/16/20 15:21 Activity Restrictions/Additional Instructions: You have been diagnosed with [epigastric pain. Recently diagnosed with gastritis and waiting for an appointment with a surgeon for a scope. Labs are unremarkable and not much changes from previous tests results. X-ray test does not show obstructions or perforation.]. What to do: *Take your medications as directed. Please continue with current medications for stomach pain. Please continue with Zofran as needed for nausea the you can hydrate. You can continue with MiraLax until you have a good bowel movement. *Follow up with your primary care provider in 2-3 days, call for an appointment. Let them know you were seen in the ED and that we asked you to be seen in follow up. *Return to ED if you have any new, worsening, or concerning symptoms, such as [fever, worsening pain, pain more localized in right lower quadrant, blood in her stool or emesis, chest pain, breathing difficulty, unable to tolerate fluids or any acute concerns]. Prescriptions: No Action No Known Home Medications RF: 0 <Leisa Emerson DO - Last Filed: 09/21/20 07:23> Cosign ED Attending Cosignature Attestation: I was immediately available in the department for consultation. This documentation has been reviewed, patient case discussed with myself and I agree with assessment and plan. Supervised by Leisa Emerson DO
== END 2020-09-16 15:21 | disposition home or self-care (01) ==
PROVIDERS: Emergency Medicine; Emergency Provider Nurse Practitioner Family
DX: R10.13 Epigastric pain (principal); D72.829 Elevated white blood cell count, unspecified; R11.0 Nausea
CPT/HCPCS: 36415; 74022; 80053; 81003; 81015; 83605; 83690; 84145; 85025; 85610; 85730; 99284

== ENCOUNTER 2020-10-11 17:50 | Emergency (ER) | payer OTHER, MEDICAID, SELFPAY ==
[2020-10-11 18:07] VITALS: BP 139/89; PULSE 70; RESP 15; TEMP 36.8; O2SAT 96; BMI 37.6
--- NOTE | 2020-10-11 18:15 | DI.RAD.S_ITS ---
PROCEDURE: XR CHEST 1V INDICATIONS: chest pain TECHNIQUE: One view of the chest was acquired. COMPARISON: [facility], CR, XR CHEST 2V, 12/08/2019, 7:39. FINDINGS: Surgical changes and devices: None. Lungs and pleura: Lungs are clear. No pleural effusions or pneumothorax. Mediastinum: Mediastinal contours appear normal. Heart size is normal. Bones and chest wall: No suspicious bony lesions. Overlying soft tissues appear unremarkable. IMPRESSION: No acute cardiopulmonary pathology. Dictated by: Lincoln Pichardo M.D. on 10/11/2020 at 18:59 Approved by: Lincoln Pichardo M.D. on 10/11/2020 at 18:59
[2020-10-11 18:38] LABS: Add Manual Diff / Slide Review NO; Basophils Absolute Auto 100 /uL (0-100); Basophils Percent Auto 0.5 % (0-2); Eosinophils Absolute Auto 0 /uL (0-450); Eosinophils Percent Auto 0.1 % (2-4); Hemoglobin 15.7 g/dL (13.5-17.5); Lymphocytes Absolute Auto 1900 /uL (1100-4500); Lymphocytes Percent Auto 14.2 % (25-40); Mean Corpuscular HGB Conc 34.8 % (30-36); Monocytes Absolute Auto 700 /uL (0-900); Monocytes Percent Auto 5.5 % (3-14); Neutrophils Absolute Auto 10600 /uL (1500-7000); Neutrophils Percent Auto 79.7 % (50-75); Platelet Count 268 X10^3/uL (150-400); Red Blood Cell Count 5.06 X10^6/uL (4.5-5.9); Red Cell Distribution Width 12.5 % (11.6-14.8); White Blood Cell Count 13.3 X10^3/uL (4.5-11.0)
[2020-10-11 18:40] LABS: Prothrombin Time 11.9 SECONDS (10.1-12.7)
[2020-10-11 18:43] LABS: PTT Partial Thromboplastin Tim 31 SECONDS (26.4-36.2)
[2020-10-11 18:45] LABS: Alanine Aminotransferase 34 IU/L (<50); Albumin 4.6 g/dL (3.5-5.0); Albumin Globulin Ratio 1.4 (1.0-2.8); Alkaline Phosphatase 54 U/L (38-126); Aspartate Aminotransferase 27 IU/L (17-59); BUN Creatinine Ratio 21.1 (6-22); Bilirubin Total 0.8 mg/dL (0.2-1.3); Blood Urea Nitrogen 15 mg/dL (9-20); Calcium 9.4 mg/dL (8.4-10.2); Carbon Dioxide 25 mmol/L (22-32); Chloride 107 mmol/L (98-107); Creatine Kinase 73 U/L (55-170); Estimated Glomerular Filt Rate > 60.0 mL/min (>60); Globulin 3.3 g/dL (1.7-4.1); Glucose 127 mg/dL (70-100); HEMOLYSIS 62 (0-50); Lipase 109 U/L (23-300); Potassium 3.8 mmol/L (3.4-5.1); Sodium 140 mmol/L (137-145); Total Protein 7.9 g/dL (6.3-8.2)
[2020-10-11 18:57] LABS: Troponin I < 0.012 ng/mL (0.01-0.034)
[2020-10-11 20:07] VITALS: PULSE 54; RESP 16; O2SAT 97
[2020-10-11 20:08] VITALS: BP 137/73; TEMP 36.7
--- NOTE | 2020-10-11 20:15 | PC.NURSE ---
Pt reports one week of feeling unwell. Reports intermittent headache and left upper chest pain. States I can't really rate it, its just uncomfortable. Hands and feet with intermittent numbness and feeling cold. Recent diagnosis with ear infection.
[2020-10-11 20:30] VITALS: BP 116/76; PULSE 54; RESP 18; O2SAT 96
--- NOTE | 2020-10-11 20:30 | ED.EXTPRO ---
HPI - Extremity Problem General Chief complaint: Extremity Problem,Nontraumatic Stated complaint: DIZZY HAND AND FEET NUMBNESS Time Seen by Provider: 10/11/20 20:08 Source: patient Mode of arrival: Ambulatory Limitations: no limitations History of Present Illness HPI Narrative: Patient is a 30-year-old male here for evaluation of multiple symptoms. He states that he has had chest pain on on for past couple weeks. Was seen in outside facility just a couple days ago diagnosed with an ear infection and was placed on steroids and amoxicillin secondary to this. He states he went to the hospital because he woke up having shortness of breath. He was also tested for COVID-19 and was reported to be negative. Reports other symptoms to include episodes where he becomes very lightheaded. He states that his hands and feet become tingling. These episodes seem to come and go into not last long when they are present. Has had some nausea but no vomiting. Related Data Home Medications Medication Instructions Recorded Confirmed No Known Home Medications 09/12/20 09/12/20 Allergies Allergy/AdvReac Type Severity Reaction Status Date / Time No Known Drug Allergies Allergy Verified 10/11/20 18:09 Review of Systems Constitutional Constitutional: Denies fever(s) and Denies headache(s) Eyes Eyes: Denies change in vision ENT Ears, Nose, Mouth, and Throat: Denies vertigo, Reports dizziness, Denies headache(s) and Denies sore throat Cardiovascular Cardiovascular: Reports chest pain and Reports dyspnea Respiratory Respiratory: Denies cough and Reports dyspnea Gastrointestinal Gastrointestinal: Reports nausea and Denies vomiting Genitourinary Genitourinary: Denies dysuria Genitourinary: Denies dysuria Musculoskeletal Musculoskeletal: Denies arthralgias, Denies myalgias and Reports tingling Integumentary/Breasts Skin/Breast: Denies rash Neurologic Neurologic: Denies confusion, Denies vertigo, Reports dizziness, Denies headache(s) and Reports tingling Psychiatric Psychiatric: Reports anxiety and Denies confusion Hematologic/Lymphatic Hematologic/Lymphatic: Denies easy bleeding and Denies easy bruising Allergic/Immunologic Allergic/Immunologic: Denies urticaria Patient History Medical History Gastritis Social History Smoking Status: Current every day smoker Smoking Status: Current every day smoker alcohol intake frequency: holidays/special occasions only Substance Use Type: does not use Exam Initial Vital Signs Initial Vital Signs: Vital Signs Temperature 98.2 F 10/11/20 18:07 Pulse Rate 70 10/11/20 18:07 Respiratory Rate 15 10/11/20 18:07 Blood Pressure 139/89 10/11/20 18:07 Pulse Oximetry 96 10/11/20 18:07 Const General: cooperative, comfortable and well developed Limitations: mental status not altered HENGA Head: normal to inspection and normocephalic Resp Effort & Inspection: normal respiratory effort Auscultation: clear to auscultation bilaterally Cardio Rate: regular rate Rhythm: regular rhythm GI Inspection: non-distended Palpation: soft Skin Lesions: no lesions Rashes: no rashes Neuro General: patient alert and patient awake Cognition: normal cognition Speech: speech normal Extrem General: capillary refill normal Psych Appearance: grossly normal and well kempt Course Orders Ordered: ED Orders 10/11/20 18:15 XR chest 1V Stat 10/11/20 18:20 Complete Blood Count AUTO DIFF Stat Comprehensive Metabolic Panel Stat Lipase Stat Partial Thromboplastin Time Stat Prothrombin Time INR Stat Troponin & CK Cardiac Panel Stat 10/11/20 18:24 EKG-12 Lead Stat Vital Signs Vital signs: Vital Signs - 8 hr 10/11/20 18:07 10/11/20 20:07 10/11/20 20:08 Temperature 98.2 F 98.0 F Pulse Rate 70 54 L Respiratory Rate 15 16 Blood Pressure 139/89 137/73 Pulse Oximetry 96 97 10/11/20 20:30 Temperature Pulse Rate 54 L Respiratory Rate 18 Blood Pressure 116/76 Pulse Oximetry 96 MDM - Extremity (Nontraumatic) Lab Data Result diagrams: 10/11/20 18:20 10/11/20 18:20 Labs: Lab Results 10/11/20 10/11/20 10/11/20 Range/Units 18:20 18:20 18:20 WBC 13.3 H (4.5-11.0) X10^3/uL RBC 5.06 (4.5-5.9) X10^6/uL Hgb 15.7 (13.5-17.5) g/dL Hct 45.0 (41-53) % MCV 89.0 (80-100) fL MCH 31.0 (26-34) PG MCHC 34.8 (30-36) % RDW 12.5 (11.6-14.8) % Plt Count 268 (150-400) X10^3/uL Neut % (Auto) 79.7 H (50-75) % Lymph % (Auto) 14.2 L (25-40) % Amite % (Auto) 5.5 (3-14) % Eos % (Auto) 0.1 L (2-4) % Baso % (Auto) 0.5 (0-2) % Neut # (Auto) 36504 H (6548-5443) /uL Lymph # (Auto) 1900 (8834-9025) /uL Amite # (Auto) 700 (0-900) /uL Eos # (Auto) 0 (0-450) /uL Baso # (Auto) 100 (0-100) /uL PT 11.9 (10.1-12.7) SECONDS INR 1.0 (0.9-1.3) APTT 31 D (26.4-36.2) SECONDS Sodium 140 (137-145) mmol/L Potassium 3.8 (3.4-5.1) mmol/L Chloride 107 (98-107) mmol/L Carbon Dioxide 25 (22-32) mmol/L BUN 15 (9-20) mg/dL Creatinine 0.71 (0.66-1.25) mg/dL Estimated GFR > 60.0 (>60) mL/min BUN/Creatinine Ratio 21.1 (6-22) Glucose 127 H (70-100) mg/dL Calcium 9.4 (8.4-10.2) mg/dL Total Bilirubin 0.8 (0.2-1.3) mg/dL AST 27 (17-59) IU/L ALT 34 (<50) IU/L Alkaline Phosphatase 54 (38-126) U/L Total Creatine Kinase 73 (55-170) U/L CK-MB (CK-2) TNP CK-MB (CK-2) Rel Index TNP Troponin I < 0.012 (0.01-0.034) ng/mL Total Protein 7.9 (6.3-8.2) g/dL Albumin 4.6 (3.5-5.0) g/dL Globulin 3.3 (1.7-4.1) g/dL Albumin/Globulin Ratio 1.4 (1.0-2.8) Lipase 109 (23-300) U/L Imaging Data Chest x-ray: Radiologist's Impression: [address] [id number] ReportSigned Patient: Juan Singh VMR#: [id number]: 1990Acct:[id number]/Sex: 30 / MDate of Service: 10/11/20Loc: EDAccession Number: [id number] Procedure: XR chest 1V Ordering Provider: Chace Beasley D.O. PROCEDURE: XR CHEST 1V INDICATIONS: chest pain TECHNIQUE: One view of the chest was acquired. COMPARISON: [facility], , XR CHEST 2V, 12/08/2019, 7:39. FINDINGS: Surgical changes and devices: None. Lungs and pleura: Lungs are clear. No pleural effusions or pneumothorax. Mediastinum: Mediastinal contours appear normal. Heart size is normal. Bones and chest wall: No suspicious bony lesions. Overlying soft tissues appear unremarkable. IMPRESSION: No acute cardiopulmonary pathology. Dictated by: Lincoln Pichardo M.D. on 10/11/2020 at 18:59 Approved by: Lincoln Pichardo M.D. on 10/11/2020 at 18:59 ECG Data Attestation EKG: I personally reviewed and interpreted this ECG as follows: Prior ECG tracings: not available for review Interpretation: Sinus bradycardia Ventricular rate of 57 Normal axis Normal QRS Normal QTC No ST T wave changes MDM Narrative Medical decision making narrative: Low suspicion for ACS. Is currently on antibiotics and would treat any respiratory illness. Low suspicion for pneumonia. Was tested for coronavirus is negative. Based on his history and physical exam I do have a high suspicion that he is having panic attacks/anxiety issues. He states that he has had anxiety in the past and agrees this could be was going on. He has made contact with a new primary doctor but his 1st appointment is later this month. He did not want any anti anxiety medicine here in the ER. He does occasionally smoke marijuana but has not in at least the past week. Advised him that he should abstain from smoking this has it could potentially be causing some of his problems. Feel we can hold on further workup for now discharge patient home was given return precautions. Both he and his was at bedside expressed understanding and agreement with plan. Discharge Plan Departure Patient Disposition: Home Clinical Impression: Anxiety Instructions: DI for Anxiety -- Adult Activity Restrictions/Additional Instructions: Recommend that you keep your scheduled appointment with your new primary doctor later this month. Return to the emergency department for any new or worsening symptoms Prescriptions: No Action No Known Home Medications RF: 0
== END 2020-10-11 20:44 | disposition home or self-care (01) ==
PROVIDERS: Emergency Provider Emergency Medicine
DX: F41.9 Anxiety disorder, unspecified (principal); R00.1 Bradycardia, unspecified; R42 Dizziness and giddiness; R06.02 Shortness of breath; R07.9 Chest pain, unspecified
CPT/HCPCS: 36415; 71045; 80053; 82550; 83690; 84484; 85025; 85610; 85730; 93005; 99283; 99284

== ENCOUNTER 2022-02-21 19:26 | Emergency (ER) | payer OTHER, MEDICAID, SELFPAY ==
[2022-02-21 19:35] VITALS: BP 162/98; PULSE 98; RESP 22; TEMP 37.1; O2SAT 100
--- NOTE | 2022-02-21 19:56 | ED_ITS ---
HPI - General Adult General Chief complaint: Dental/Oral Stated complaint: lump under chin lt ear, pain Time Seen by Provider: 02/21/22 19:48 Source: patient Mode of arrival: Ambulatory History of Present Illness HPI narrative: 32-year-old male who a couple days ago had pain in his left lower back tooth. That is since improved since then he has noticed discomfort along his jaw on the left side. No sore throat. No ear pain. Attempted to contact the dentist and was told it would be several weeks before he can get in to be seen. Has not tried anything for symptoms prior to arrival. Related Data Previous Rx's Medication Instructions Recorded penicillin V potassium 500 mg 500 mg PO QID 7 Days #28 tab 02/21/22 tablet Allergies Allergy/AdvReac Type Severity Reaction Status Date / Time No Known Drug Allergies Allergy Verified 10/11/20 18:09 Review of Systems Constitutional Constitutional: Denies fever(s) ENT Ears, Nose, Mouth, and Throat: Reports system reviewed and no additional complaints, except as documented Respiratory Respiratory: Reports system reviewed and no additional complaints, except as documented Gastrointestinal Gastrointestinal: Reports system reviewed and no additional complaints, except as documented Integumentary/Breasts Skin/Breast: Reports system reviewed and no additional complaints, except as documented Patient History Medical History Gastritis Social History Smoking Status: Current every day smoker Smoking Status: Current every day smoker alcohol intake frequency: holidays/special occasions only Substance Use Type: does not use Exam Initial Vital Signs Initial Vital Signs: Vital Signs Temperature 98.8 F 02/21/22 19:35 Pulse Rate 98 H 02/21/22 19:35 Respiratory Rate 22 02/21/22 19:35 Blood Pressure 162/98 H 02/21/22 19:35 Pulse Oximetry 100 02/21/22 19:35 Const General: cooperative, healthy appearing, comfortable and well developed [facility] Head: normal to inspection Ears: hearing grossly normal bilaterally Nose: external nose normal Mouth: oral mucosae normal, lip normal, tongue normal, oropharynx normal and moist mucous membranes Teeth and gingiva: dentition normal Neck Other: Fullness along the left mandibular deltoid. Resp Effort & Inspection: normal respiratory effort Skin General: no rashes or lesions noted Neuro General: patient alert, patient awake and moves all extremities Extrem General: normal to inspection and capillary refill normal Course Orders Ordered: Discontinued Medications Penicillin V Potassium (Penicillin Vk 250 Mg Tablet) 500 mg PO NOW ONE Stop: 02/21/22 19:57 Last Admin: 02/21/22 19:59 Dose: 500 mg Documented by: TK Vital Signs Vital signs: Vital Signs - 8 hr 02/21/22 19:35 Temperature 98.8 F Pulse Rate 98 H Respiratory Rate 22 Blood Pressure 162/98 H Pulse Oximetry 100 Medical Decision Making MDM Narrative Medical decision making narrative: Patient has a relatively benign looking oral cavity without any drainable abscess seen on the exam however given his discomfort that he had a couple days ago in the fullness along the left mandibular region will start him on antibiotics. Informed him that he does need to follow up with the dentist despite any response to this medication. He was given return precautions. He expressed understanding and agreement. Discharge Plan Departure Patient Disposition: Home Clinical Impression: Dental abscess Instructions: DI for Dental Pain Activity Restrictions/Additional Instructions: It is important that you follow-up with a dentist. Until then take the antibio tics as directed. You can take Tylenol/ibuprofen for any discomfort. Return to the emergency department for any new or worsening symptoms. Prescriptions: New penicillin V potassium 500 mg tablet 500 mg PO QID 7 Days Qty: 28 0RF
[2022-02-21] MEDS: PENICILLIN VK 250 MG TABLET 500 MG PO (19:59)
== END 2022-02-21 20:03 | disposition home or self-care (01) ==
PROVIDERS: Emergency Provider Emergency Medicine
DX: K04.7 Periapical abscess without sinus (principal)
CPT/HCPCS: 99283

== ENCOUNTER 2022-04-12 00:12 | Emergency (ER) | payer OTHER, MEDICAID, SELFPAY ==
[2022-04-12 00:32] VITALS: BP 156/96; PULSE 105; RESP 16; TEMP 36.8; O2SAT 94; BMI 38.3
--- NOTE | 2022-04-12 00:49 | ED.HA ---
HPI - Headache General Chief Complaint: Headache Stated Complaint: LEFT SIDE JAW PAIN, HEADACHE Time Seen by Provider: 04/12/22 00:48 Mode of arrival: Ambulatory History of Present Illness HPI Narrative: 32-year-old gentle presents with left-sided submandibular pain. It began approximately 3 days ago and has been getting progressively worse. He was seen earlier today at [facility] and prescribed amoxicillin however he was [facility] able [facility] He has taken Tylenol earlier and has tried some lemon candies but at this point he is finding that the swelling is increasing the pain is now radiating to the angle of the jaw around the back of his head. He describes no fevers, cough, chills, vomiting, nausea, diarrhea Related Data Allergies Allergy/AdvReac Type Severity Reaction Status Date / Time No Known Drug Allergies Allergy Verified 10/11/20 18:09 Review of Systems Review of Systems Narrative: Remainder of complete review of systems is otherwise unremarkable except for that included in the HPI. Patient History Medical History Gastritis Social History Smoking Status: Current every day smoker Smoking Status: Current every day smoker alcohol intake frequency: holidays/special occasions only Substance Use Type: crack/cocaine Exam Initial Vital Signs Initial Vital Signs: Vital Signs Temperature 98.3 F 04/12/22 00:32 Pulse Rate 105 H 04/12/22 00:32 Respiratory Rate 16 04/12/22 00:32 Blood Pressure 156/96 H 04/12/22 00:32 Pulse Oximetry 94 04/12/22 00:32 General: Alert appropriate in no acute distress HEENT: There is fullness over the left angle of the jaw. On exam he has some minor swelling at the opening of the submandibular duct on the left side. When palpated, this completely recreates his pain. It is not appear to be an abscess or any type of developing cellulitis. This is clearly not a parotid gland involved. Dentition is appropriate and no suggestion of dental abscess is appreciated. Respiratory: Able to speak in full sentences, no obvious respiratory distress Skin: No obvious rashes, warm and dry Neurologic: Grossly intact no obvious asymmetries or abnormalities Psych: appropriate insight and affect, cooperative Course Orders Ordered: Discontinued Medications Acetaminophen (Acetaminophen 325 Mg Tablet) 325 mg PO NOW ONE Stop: 04/12/22 00:49 Amoxicillin (Amoxicillin 250 Mg Capsule) 500 mg PO NOW ONE Stop: 04/12/22 00:49 Ibuprofen (Ibuprofen 400 Mg Tablet) 400 mg PO NOW ONE Stop: 04/12/22 00:49 Prednisone (Prednisone 20 Mg Tablet) 60 mg PO NOW ONE Stop: 04/12/22 00:49 Vital Signs Vital signs: Vital Signs - 8 hr 04/12/22 00:32 Temperature 98.3 F Pulse Rate 105 H Respiratory Rate 16 Blood Pressure 156/96 H Pulse Oximetry 94 MDM - Headache MDM Narrative Medical decision making narrative: 32-year-old gentleman with blocked left-sided submandibular gland. Pain is increasing. He has antibiotic prescription and has been trying sour candies to help encourage the the gland to drain. In the emergency department he is given a single dose of steroid to see if this might help with the inflammation at the duct opening. He is given his 1st dose of amoxicillin and ibuprofen and Tylenol. He declines any additional pain medications time. He has a prescription of Augmentin written by the doctor from [facility]. There is no evidence abscess or deeper tissue infection. No suggestion of dental involvement. He is safe for home discharge Discharge Plan Departure Patient Disposition: Home Clinical Impression: Submandibular gland inflammation Activity Restrictions/Additional Instructions: Thank you for coming in today I am sorry that the pain is getting worse. The doctor at [facility] was absolutely correct with her diagnosis and suggestions. The salivary gland underneath your tongue is blocked and swollen in the foot causing the tenderness. In the emergency room tonight I have given you a single dose of steroid to see if this will help reduce some of the inflammation while the antibiotics start to take effect. 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 Kuo Using 400 mg of ibuprofen (2 [id number] pills) and 1 Tylenol every 6 hours can be very helpful in controlling pain. Continuing to use sour candies such as lemon or sour patch gummies can be helpful in increasing salivary production and pushing pass the slight amount of inflammation at the opening so the entire gland can drain more effectively. If you find that you are getting worse or develop any new symptoms, please feel free to return to the emergency department for further evaluation.
[2022-04-12] MEDS: AMOXICILLIN 250 MG CAPSULE 500 MG PO (01:03)
[2022-04-12] MEDS: predniSONE 20 MG TABLET 60 MG PO (01:03)
[2022-04-12] MEDS: IBUPROFEN 400 MG TABLET PO (01:04)
[2022-04-12] MEDS: ACETAMINOPHEN 325 MG TABLET PO (01:04)
== END 2022-04-12 01:10 | disposition home or self-care (01) ==
PROVIDERS: Emergency Provider Emergency Medicine
DX: K11.20 Sialoadenitis, unspecified (principal)
CPT/HCPCS: 99283

== ENCOUNTER 2022-04-17 09:01 | Emergency (ER) | payer OTHER, MEDICAID, SELFPAY ==
[2022-04-17 09:02] VITALS: BP 146/83; PULSE 83; RESP 14; TEMP 36.8; O2SAT 98; BMI 38.3
--- NOTE | 2022-04-17 09:13 | ED.SKABFB ---
HPI - Skin/Abscess/Foreign Bdy General Chief complaint: Skin/Abscess/Foreign Body Stated complaint: Lump on underside of left jaw- throat hurting Time Seen by Provider: 04/17/22 09:11 Source: patient Mode of arrival: Ambulatory Limitations: no limitations History of Present Illness HPI narrative: This is a 32-year-old male with seasonal allergies with BMI of 38 who presents with swelling of the glands on the left submandibular region. Patient states that it presented about 2 weeks ago, he was seen at [facility] and started on Augmentin, there was a delay in filling the prescription by about a day he was seen here on April 12 for same was given a 1st dose of amoxicillin and encouraged to continue Augmentin. Patient states that has not really gotten bigger but has not gone away or gotten smaller he states little tender he also noticed some discomfort on the opposite side submandibularly. He denies fevers or chills. He states he had recent infection about 3 weeks ago of nasal congestion and mild cough but that this has resolved. He denies any significant sore throat he has had a little bit of discomfort but states it is very mild and that started about 5 days ago. Patient denies any chest pain or shortness of breath. No nausea or vomiting other than 1st thing in the morning with nasal congestion. Patient denies any GI or urinary symptoms. No rashes or skin changes. He states the area of swelling has always been sub mandibular never on the cheek, occasional pain that radiates towards his ear. He denies any dental issues recently. Patient denies any prior surgeries. No known drug allergies. He takes famotidine and Claritin [id number]. He does use tobacco, occasional alcohol, occasional marijuana but denies other illicit. He does not have a primary care physician currently. Related Data Allergies Allergy/AdvReac Type Severity Reaction Status Date / Time No Known Drug Allergies Allergy Verified 04/17/22 09:07 Review of Systems Review of Systems ROS Unobtainable: All systems reviewed & are unremarkable except as noted in HPI and below Patient History Medical History (Updated 04/17/22 @ 10:18 by Leisa Emerson DO) Gastritis Social History Smoking Status: Current every day smoker Smoking Status: Current every day smoker alcohol intake frequency: holidays/special occasions only Substance Use Type: marijuana Exam Narrative Exam Narrative: GEN: well nourished, well appearing male, alert and oriented x 3, patient appears to be in mild distress. HEENT: Atraumatic, pupils are equal round reactive to light, extraocular movements are intact, nares are clear, TMs are clear with no fluid, there is no conjunctival pallor. Throat is clear without any exudates, erythema, tonsillar enlargement or uvular deviation, patient does not have any obvious facial swelling, he does have a maynard, on palpation patient has palpable lymph which is slightly tender, it is nonfluctuant, mobile deep in the submandibular region adjacent to the tracheal ring, there is also small nontender lymph node on the adjacent right. Patient does not have any other cervical chain lymphadenopathy. He does not have any palpation tenderness over the parotid or other salivary gland region. Not able to express any fluid or purulent changes from these areas on the intraoral exam. No dental pain, no obvious swelling or other skin changes appreciated externally or internally. HEART: Regular rate and rhythm without murmur, clicks, rubs. LUNGS:Lungs clear to auscultation, no wheezes, rales, crackles, chest moves symmetrically ABD:bowel sounds normal, soft, non-tender, no guarding, rebound, rigidity, no masses noted, no hepatosplenomegaly MSCL: full range of motion, normal gait NEURO:CN 2-12 intact, sensation normal SKIN: No rash, erythema or other skin changes. Initial Vital Signs Initial Vital Signs: Vital Signs Temperature 98.3 F 04/17/22 09:02 Pulse Rate 83 04/17/22 09:02 Respiratory Rate 14 04/17/22 09:02 Blood Pressure 146/83 H 04/17/22 09:02 Pulse Oximetry 98 04/17/22 09:02 Course Orders Ordered: ED Orders 04/17/22 09:33 COVID19 -Nasal RAPID/Pre-Proc Stat Vital Signs Vital signs: Vital Signs - 8 hr 04/17/22 09:02 Temperature 98.3 F Pulse Rate 83 Respiratory Rate 14 Blood Pressure 146/83 H Pulse Oximetry 98 MDM - Skin/Abscess/Foreign Bdy Lab Data Labs: Lab Results 04/17/22 Range/Units 09:40 SARS-CoV-2 (PCR) Negative (Negative) MDM Narrative Medical decision making narrative: This is a 32-year-old male who presents with concern for inflammation of the submandibular or salivary gland particularly on the left side and has noticed some discomfort on the right as well. Patient's exam is reassuring. I am able to palpate likely lymph node which is only very mildly tender nonfluctuant has reassuring exam with deep palpation on the left. The rest of patient's exam is benign. Patient did complain of some sore throat he has been on 5 days of the appropriate antibiotics would not swab for strep, offered to swab for COVID or other viral illnesses. We discussed that these can sometimes cause enlargement of lymph nodes. There are no obvious bacterial or other changes currently. He has been on Augmentin and is on his 5th day of treatment. We discussed that there is no obvious signs of a salivary stone or sialadenitis currently although he has been using this our candies. He has nontender over this region he has clear saliva on exam with no purulent discharge. Discussed with patient I would plan on watchful waiting at this time his exam is currently reassuring and complain his antibiotics. If patient has persistent lymph node that feels large to him can follow up with primary care if he has other new acute or concerning changes which we discussed he is to return to the ER for re-evaluation. Discharge Plan Departure Patient Disposition: Home Clinical Impression: Lymph node enlargement Activity Restrictions/Additional Instructions: You should follow up with primary care, is the call center number to help you establish with a primary care physician. Please call this number. Your exam today is reassuring. On exam I am able to palpate a lymph that is only very mildly enlarged, if this resolves you do not have to do any additional follow-up or treatment. There are multiple reasons that this can occur. I would recommend you complete your antibiotics. Your COVID swab is negative. Please return for fevers greater than 100.4 F, rapidly changing or increasing swelling of the face, neck, mouth, appear having difficulty swallowing or inability to swallow your saliva or secretions, stridor or high-pitched wheezing or other new or concerning symptoms. Visit Report Forms: Patient Portal/API
[2022-04-17 10:28] LABS: COVID19 -Nasal RAPID Negative (Negative)
== END 2022-04-17 10:40 | disposition home or self-care (01) ==
PROVIDERS: Emergency Provider Emergency Medicine
DX: R59.9 Enlarged lymph nodes, unspecified (principal); Z20.822 Contact with and (suspected) exposure to COVID-19
CPT/HCPCS: 87635; 99281; 99282; C9803

== ENCOUNTER 2022-04-25 04:39 | Emergency (ER) | payer OTHER, MEDICAID, SELFPAY ==
[2022-04-25 04:46] VITALS: BP 146/80; PULSE 90; RESP 18; TEMP 37.3; O2SAT 95
--- NOTE | 2022-04-25 05:00 | ED.GENADULT ---
HPI - General Adult General Chief complaint: Upper Respiratory Symptoms Stated complaint: temp 103 fever, body aches, headache Time Seen by Provider: 04/25/22 04:42 Source: patient Mode of arrival: Ambulatory Limitations: no limitations History of Present Illness HPI narrative: 32-year-old male who was seen here recently for left-sided some mandibular lymphadenopathy. He has completed a course of antibiotics for this. He states that is completely resolved. Earlier this week he started to feel poorly and then less than 12 hours ago started to have fever. Took some ibuprofen at home. Went back to sleep. When he woke up a short time later he still had a fever. He was advised to come to the emergency department for evaluation by his . No skin changes. Does have cough. Has body aches and headache. No sore throat. No abdominal pain. No urinary symptoms. Related Data Allergies Allergy/AdvReac Type Severity Reaction Status Date / Time No Known Drug Allergies Allergy Verified 04/17/22 09:07 Review of Systems Review of Systems ROS Unobtainable: All systems reviewed & are unremarkable except as noted in HPI and below Patient History Medical History Gastritis Social History Smoking Status: Current every day smoker Smoking Status: Current every day smoker alcohol intake frequency: holidays/special occasions only Substance Use Type: marijuana Exam Initial Vital Signs Initial Vital Signs: Vital Signs Temperature 99.1 F 04/25/22 04:46 Pulse Rate 90 04/25/22 04:46 Respiratory Rate 18 04/25/22 04:46 Blood Pressure 146/80 H 04/25/22 04:46 Pulse Oximetry 95 04/25/22 04:46 Oxygen Delivery Method 04/25/22 04:46 Const General: comfortable HENMT Head: normal to inspection and normocephalic Resp Effort & Inspection: normal respiratory effort Auscultation: clear to auscultation bilaterally Cardio Rate: regular rate Rhythm: regular rhythm GI Inspection: normal to inspection Palpation: soft and No tender Skin General: no rashes or lesions noted Neuro General: patient alert, patient awake and moves all extremities Extrem General: normal to inspection Course Orders Ordered: ED Orders 04/25/22 04:45 Covid-19 + FLU A/B by PCR Stat Vital Signs Vital signs: Vital Signs - 8 hr 04/25/22 04:46 Temperature 99.1 F Pulse Rate 90 Respiratory Rate 18 Blood Pressure 146/80 H Pulse Oximetry 95 Oxygen Delivery Method Room Air Medical Decision Making Lab Data Labs: Lab Results 04/25/22 Range/Units 04:45 SARS-CoV-2 (PCR) Positive H (Negative) Influenza A (RT-PCR) Flu a negative (NEGATIVE) Influenza B (RT-PCR) Flu b negative (NEGATIVE) MDM Narrative Medical decision making narrative: Patient is unvaccinated against COVID. He has a clear lung exam. No respiratory distress. No abdominal pain. Is COVID positive. I did discuss this with him. No indication for antibiotics. He is give return precautions and follow-up instructions. He expressed understanding and agreement. Discharge Plan Departure Patient Disposition: Home Clinical Impression: COVID-19 Instructions: DI for COVID-19 (Suspected or Confirmed ) Activity Restrictions/Additional Instructions: Your COVID-19 test is positive please follow all CDC guidelines with regard to quarantine. You can take Tylenol for any fevers. Be sure to increase your fluid intake. Contact your primary doctor for follow-up. Return to the emergency department for any new or worsening symptoms. Stand Alone Forms: Work Release Note
[2022-04-25 05:27] LABS: Influenza A - CEPHEID Flu A NEGATIVE (NEGATIVE); Influenza B - CEPHEID Flu B NEGATIVE (NEGATIVE)
[2022-04-25 05:29] LABS: COVID-19 CEPHEID PCR (VTM/NP) POSITIVE (Negative)
[2022-04-25 05:43] VITALS: BP 142/81; PULSE 83; RESP 18; O2SAT 95
== END 2022-04-25 05:45 | disposition home or self-care (01) ==
PROVIDERS: Emergency Provider Emergency Medicine
DX: U07.1 COVID-19 (principal)
CPT/HCPCS: 87635; 99281; 99282; C9803